=== PATIENT | female | born 1945 | race African-American/Black ===

== ENCOUNTER → 2016-05-18 | Outpatient (CLI) | payer OTHER ==
--- NOTE | 2016-05-18 18:59 | DIAGNOSTIC IMAGING REPORT ---
THREE-PHASE NUCLEAR BONE SCAN OF THE PELVIS CLINICAL HISTORY: Pelvic and perineal pain. COMPARISON STUDY: No priors. TECHNIQUE: Following the IV administration of 25.3 mCi of technetium 99m MDP, three-phase bone scan of the pelvis was performed. Flow and blood pool phase imaging of the pelvis was performed both anteriorly and posteriorly. Bone phase imaging of the pelvis and femora was performed at three hours in multiple obliquities. Note that interpretation is suboptimal without plain film correlate. FINDINGS: There is no hyperemia identified in the pelvis or proximal femora on the flow or blood pool phase images. On the bone phase images there is focal abnormal tracer deposition seen within the proximal right femoral metaphysis. Abnormal activity is also seen within the right femoral head and acetabulum. No abnormal activity localizes to the left hip. The distal femora are normal bilaterally. There is expected excreted activity within the bladder. IMPRESSION: 1. Three-phase negative bone scan of the pelvis. 2. There is asymmetric abnormal tracer deposition seen within the right hip on the bone phase imaging. This involves both the acetabulum and the femoral head. This is indeterminant and may be on an arthritic basis. Plain film correlation will be required. 3. There is an additional focus of abnormal tracer deposition within the right proximal femoral metaphysis. This is of indeterminant significance, and could potentially represent a stress fracture, postoperative change, or a destructive bony lesion. Again, plain film correlate will be required. Electronically signed by: Moiz Bedoya M.D. 05/18/2016 6:57 PM Dictated Date/Time: 05/18/2016 6:52 PM
== END | disposition home or self-care (01) ==
LOC: C.NUCL 14:24
PROVIDERS: ATTEND Orthopaedic Surgery Sports Medicine
DX: R10.2 Pelvic and perineal pain (principal); R93.7 Abnormal findings on diagnostic imaging of other parts of musculoskeletal system